=== PATIENT | female | born 1980 | race Caucasian/White ===

== ENCOUNTER 2022-07-16 08:59 | Outpatient (AMBR) | payer MEDICAID, SELFPAY ==
--- NOTE | 2022-07-14 09:56 | PT.ODAYNRPT ---
PT Outpatient Daily Note Date of Service: 07/14/22 OP Daily Note Visit Reasons: Right shoulder pain Outpatient Physical Therapy Treatment Date: 07/14/22 Subjective: Pt had her left shoulder operated and brought in an order. Pt will complete right shoulder on tuesday Objective: Please see flow chart for list of ther ex performed Assessment: tolerate exercises with minimal pain Plan: Continue with PT Length of Time (minutes) of Treatment: 30 Minutes Office Procedures PT Treatments PT Date of Service: 07/14/22 Therapeutic Exercise 30 minutes: Yes
--- NOTE | 2022-07-16 09:32 | PT.ODS1RPT ---
PT OP Progress/Discharge Note Date of Service: 07/16/22 Progress Note/DC Note Progress Note/Discharge Note: DC Note Patient Information Visit Reasons: Right shoulder pain Medical Diagnosis: Right Shoulder Pain Treatment Dx #1: Right Shoulder Mobility Deficits Service Continue Service or Discharge: Discharge Discharge Date: 07/16/22 Status Subjective: Pt's arm is about the same. Pt recently had her opposite her operated. Pt still has limitation with all ADLs, chores, overhead motions, reaching behind back, and recreational activities. Pt will like to stop physical therapy and follow up with provider for further consultation. Objective: Right Shoulder AROM Flexion: 160 deg Abduction: 160 deg External Rotation: 80 deg Internal Rotation: 60 deg Right Shoulder MMTs: grossly 3+/5 Right Scapula MMTs: grossly 3+/5 HBB: Thumb at glute fold Special Test (+) hawkin- james, (+) speed (+) active garcía's Assessment: Pt demonstrate slight improve with shoulder ROM but no change with pain leading to difficulty with ADLs. Pt will no longer benefit from physical therapy due to minimal progression towards goals. Pt advised to follow up with provider for further consultation; thank you for your referrals Plan: D/C home and follow up with MD Recommend further imaging Office Procedures PT Treatments PT Date of Service: 07/16/22 Therapeutic Exercise 30 minutes: Yes PT Treatments PT Date of Service: 07/14/22 Therapeutic Exercise 30 minutes: Yes
== END 2022-08-11 23:59 | disposition home or self-care (01) ==
PROVIDERS: Visit Provider Physician Assistant
DX: Z53.9 Procedure and treatment not carried out, unspecified reason (principal)
CPT/HCPCS: 97110

== ENCOUNTER 2024-08-05 18:54 | Emergency (ER) | payer MEDICAID, SELFPAY ==
[2024-08-05 18:55] VITALS: BMI 22.7
--- NOTE | 2024-08-05 18:58 | EKG_ITS ---
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1980 Requested By: ED Temporary Provider Order Number: [id number] Reading MD: ED Temporary Provider Measurements Intervals [place] Rate: 118 P: 71 UT: 135 QRS: -13 QRSD: 87 T: 67 QT: 357 QTc: 501 Interpretive Statements SINUS TACHYCARDIA LEFT ATRIAL ENLARGEMENT [-0.15mV P-WAVE IN V1/V2] POSSIBLE RIGHT VENTRICULAR CONDUCTION DELAY [RSR (QR) IN V1/V2] NONSPECIFIC ST & T-WAVE ABNORMALITY Compared to ECG 02/12/2021 08:10:54 Atrial abnormality now present T-wave abnormality now present Sinus rhythm no longer present Short UT interval no longer present /store/S0/[id number].pdf
[2024-08-05 19:00] VITALS: BP 142/88; PULSE 130; RESP 18; TEMP 37.2; O2SAT 95
--- NOTE | 2024-08-05 19:24 | PD.EDRME ---
Rapid Medical Screening Exam RME Arrival date/time: 08/05/24 18:54 Chief Complaint: Arrhythmia/Palpitations Time Seen by Provider: 08/05/24 19:16 Vital signs: Vital Signs Temperature 99.0 F 08/05/24 19:00 Pulse Rate 130 H 08/05/24 19:00 Respiratory Rate 18 08/05/24 19:00 Blood Pressure 142/88 H 08/05/24 19:00 Pulse Oximetry (%) 95 08/05/24 19:00 Oxygen Delivery Method Room Air 08/05/24 19:00 Vital signs reviewed by provider: Yes RME Narrative: 44-year-old female presents to the ED with a complaint of palpitations, shortness of breath, feeling of non-psychogenic anxiety. She states her blood pressure during the time of the incident approximately 45 minutes ago was 170s over 1 teens. She denies recent illness with fever, chills, cough, upper respiratory complaints. She denies use of excessive caffeine. She is a diabetic and has been taking her medications. No known thyroid issues. I have greeted and performed a focused initial assessment of this patient. A comprehensive ED assessment and evaluation of the patient, analysis of all test results, and completion of the medical decision making process will be conducted by additional ED providers.
--- NOTE | 2024-08-05 19:26 | XR_ITS ---
Examination: PA lateral chest 2 views TECHNIQUE: Upright PA and lateral chest 2 views Date and time: August 05, 2024 1929 hours COMPARISON: July 05, 2020 INDICATIONS: Onset chest pain today FINDINGS: Normal heart size. Lungs are clear. Osseous structures are intact. IMPRESSION: No active disease
--- NOTE | 2024-08-05 19:43 | PD.EDARRY ---
ED Arrhythmia Palp. RME/HPI General Chief Complaint: Arrhythmia/Palpitations Stated Complaint: PALPITATIONS, DIZZINESS & HTN Time Seen by Provider: 08/05/24 19:16 Arrival date/time: 08/05/24 18:54 RME / HPI RME / HPI narrative: 44-year-old female presents to the ED with a complaint of palpitations, shortness of breath, feeling of non-psychogenic anxiety. She states her blood pressure during the time of the incident approximately 45 minutes ago was 170s over 1 teens. She denies recent illness with fever, chills, cough, upper respiratory complaints. She denies use of excessive caffeine. She is a diabetic and has been taking her medications. No known thyroid issues. I have greeted and performed a focused initial assessment of this patient. A comprehensive ED assessment and evaluation of the patient, analysis of all test results, and completion of the medical decision making process will be conducted by additional ED providers. This section includes all my notes and documentations, including HPI, PE, and ED course. 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 No other complaints. ROS: All negative except as documented in HPI. Physical Exam: General: Alert and oriented. Appears anxious. Eyes: Conjunctivae and lids clear. ENT: No nasal congestion. Neck: Supple. Heart: Sinus tachycardia noted. Lungs: No respiratory distress. Good air movement. No rhonchi, wheezing, rales. Skin: Warm and dry. Neuro: Alert and oriented X 3. Cranial nerves II to XII grossly normal. No peripheral motor deficits. I reviewed all diagnostic test results. My interpretation of the EKG is sinus tachycardia with no acute ST?T changes. My interpretation of the chest x-ray is unremarkable. Blood tests are unremarkable, including negative troponin/D-dimer/BNP. At this point, diagnoses include anxiety. Treatment here included Xanax. Significant improvement noted. Recommended more outpatient cardiac workup. Based on my best medical judgment, made decision no further evaluation or treatment indicated at this time. Patient understands and agrees to the discharge instructions customized and printed, see below. Discharge instructions from Dr. Smiley: 1. After extensive evaluation, there is no life-threatening condition.? Such as heart attack or pulmonary embolism (blood clots in your lungs) or pneumothorax (collapsed lung). 2. Your symptoms may be due to underlying stress or anxiety or nerves.? This is fairly common. 3. Take metoprolol as needed.? Hold if heart rate < 70 or SBP (higher BP number) < 110. 4. See a private doctor on 08/06/24 for recheck and further care. To make sure there is no serious underlying heart condition, ask to help you get more tests for your heart that cannot be done here in the ER.? Such as Holter Monitor (cardiac monitoring at home from a day to even a month), heart stress test (on treadmill or with medication), echocardiogram (imaging of your heart structures), heart catherization (checking for blockages in your heart arteries), and a referral to see a Change Control Specialist. 5. Seek immediate medical care with worsening or with any concerns.?? You were given a dose of Xanax here today for severe palpitation and tachycardia. Stalin Smiley MD Related Data Home Medications ?Medication ?Instructions ?Recorded ?Confirmed insulin regular human 100 unit/mL See Rx Instructions .Route .COMPLEX 01/10/20 02/12/21 injection solution (Novolin R Regular U-100 Insulin) Previous Rx's ?Medication ?Instructions ?Recorded metoprolol tartrate 25 mg tablet 25 mg PO BID PRN Anxiety #20 tabs 08/05/24 Allergies Allergy/AdvReac Type Severity Reaction Status Date / Time No Known Allergies Allergy Verified 02/12/21 07:54 Review of Systems Review of Systems Systems Reviewed: All systems reviewed, normal except as documented Past Medical History Past Medical History CARDIAC: Negative Congestive Heart Failure RESPIRATORY: Negative Chronic Obstructive Pulmonary Disease (COPD), Asthma, Emphysema, Pneumonia or Tuberculosis GENITOURINARY: Negative Renal Disease ENDOCRINE: Positive Diabetes Mellitus Type 1; Negative Diabetes Mellitus Type 2 PSYCHO/SOCIAL: Positive Recreational Drug Use OTHER HISTORY: Negative Cancer Surgical History SURGICAL: Positive Hysterectomy Social History SMOKING STATUS: Current every day smoker SECOND HAND EXPOSURE: No SUBSTANCE USE: does not use ED Exam Narrative Physical exam: As noted in HPI. Course Course Course Narrative: CXR is ordered for determining the etiology of palpitations. Quality Measures none Orders Category Date Time Status EKG (ED ONLY) *Do not use* NOW Care 08/05/24 18:58 Completed EKG (ED Only) Stat Exams 08/05/24 18:58 Draft XR chest 2V Stat Exams 08/05/24 19:26 Taken B-Type Natriuretic Peptide Stat Lab 08/05/24 19:26 Ordered CBC Stat Lab 08/05/24 19:26 Ordered Comprehensive Metabolic Panel Stat Lab 08/05/24 19:26 Ordered Drug Screen,Urine Stat Lab 08/05/24 19:26 Ordered Free T4 (Free Thyroxine) Stat Lab 08/05/24 19:26 Ordered HCG Qualitative,Urine Stat Lab 08/05/24 19:26 Ordered LDH (Lactate Dehydrogenase) Stat Lab 08/05/24 19:26 Ordered Magnesium Stat Lab 08/05/24 19:26 Ordered Partial Thromboplastin Time Stat Lab 08/05/24 19:26 Ordered Prothrombin Time with INR Stat Lab 08/05/24 19:26 Ordered TSH [Thyroid Stimulating Hormone] Stat Lab 08/05/24 19:26 Ordered Troponin I Stat Lab 08/05/24 19:26 Ordered Urinalysis Stat Lab 08/05/24 19:26 Ordered Vital Signs Vital signs: Vital Signs Temperature 99.0 F 08/05/24 19:00 Pulse Rate 130 H 08/05/24 19:00 Respiratory Rate 18 08/05/24 19:00 Blood Pressure 142/88 H 08/05/24 19:00 Pulse Oximetry (%) 95 08/05/24 19:00 Oxygen Delivery Method Room Air 08/05/24 19:00 Arrhythmia/Palpitations MDM Narrative MDM Narrative:: Scribe Attestation: 08/05/24 Sharyn Stevenson am scribing for and in the presence of Dr. Smiley. 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 Patient states she was watching TV when she started having palpitations that would not subside, reporting she's had them for the last one hour. Patient reports feeling anxious and dizzy. She denies any fever, chills, cough or any other associated symptoms. No other complaints reported. Patient data External records reviewed:: [facility] previous records (Per chart review, patient has no relevant previous ED visits.) Clinical information provided by:: patient Social determinants that could affect healthcare access:: substance use (history of; is on methadone) Patient has the following chronic illnesses:: DM How is presenting disease/condition affected by chronic disease/condition?: uneffected by Evaluation data The following diagnostics were reviewed and interpreted by me:: lab results, radiology exam(s) and EKG tracing(s) Lab and/or radiology exams considered but not ordered:: none Interpretation Summary: I reviewed all diagnostic test results. My interpretation of the EKG is sinus tachycardia with no acute ST?T changes. My interpretation of the chest x-ray is unremarkable. Blood tests are unremarkable, including negative troponin/D-dimer/BNP. Medications / Prescriptions Medications or Prescriptions considered but not ordered:: none Medication administrations:: Xanax Consultations Consultation(s) initiated? (list below): No Diagnosis Differential diagnosis arrhythmia/palpitations: palpitations, anxiety, sinus tachycardia, artial fibrillation, artial flutter, ventricular premature beats, supraventricular tachycardia and ventricular tachycardia Most likely diagnosis given after review of the tests above:: Anxiety Admission Indicated Admission indicated?: not indicated Explain why admission is indicated or not indicated:: With significant improvement, there was no indication for admission. Admission Request Was there a request for admission?: No Disposition Plan Disposition Plan: Discharge Discharge Attestation Discharge Attestation: The patient and all family members were given an opportunity to ask questions and understood the discharge instructions. Discharge instructions specifically effects, indications for sooner follow up or return to the emergency department, and the expected course of current diagnosis. Patient condition: Stable Discharge Plan Plan Patient Disposition: HOME (Self Care) Prescriptions/Referrals Prescriptions/Med Rec: New metoprolol tartrate 25 mg tablet 25 mg PO BID PRN (Reason: Anxiety) Qty: 20 0RF No Action Novolin R Regular U100 Insulin 100 unit/mL Solution See Rx Instructions .ROUTE .COMPLEX Rx Instructions: per sliding scale. Pt on insulin pump. Referrals: Malini Fulton PA-C [Primary Care Provider] - In 1 week Problem List Clinical Impression: Palpitations Patient/Caregiver Discharge Instructions Discharge Activity: activity as tolerated Education Materials: ED Anxiety Reaction, ED Panic Attack Additional Instructions: Discharge instructions from Dr. Smiley: 1. After extensive evaluation, there is no life-threatening condition.? Such as heart attack or pulmonary embolism (blood clots in your lungs) or pneumothorax (collapsed lung). 2. Your symptoms may be due to underlying stress or anxiety or nerves.? This is fairly common. 3. Take metoprolol as needed.? Hold if heart rate < 70 or SBP (higher BP number) < 110. 4. See a private doctor on 08/06/24 for recheck and further care. To make sure there is no serious underlying heart condition, ask to help you get more tests for your heart that cannot be done here in the ER.? Such as Holter Monitor (cardiac monitoring at home from a day to even a month), heart stress test (on treadmill or with medication), echocardiogram (imaging of your heart structures), heart catherization (checking for blockages in your heart arteries), and a referral to see a Change Control Specialist. 5. Seek immediate medical care with worsening or with any concerns.?? You were given a dose of Xanax here today for severe palpitation and tachycardia. Stalin Smiley MD Print Language: Uzbek Stand Alone Forms: Karen Award Info., Patient Portal Info Letter
[2024-08-05 19:56] LABS: Basophils # (Auto) 0.1 Thou/mm3 (0.0-0.2); Basophils % (Auto) 1 % (0-2.5); Eosinophils # (Auto) 0.1 Thou/mm3 (0.0-0.5); Eosinophils % (Auto) 2 % (0-10); Hematocrit 45.2 % (36.0-46.0); Hemoglobin 15.2 g/dL (12.0-16.0); Immature Granulocytes % (Auto) 0 % (0-0); Immature Granulocytes Auto 0.01 Thou/mm3 (0.00-0.00); Lymphocytes # (Auto) 2.1 Thou/mm3 (1.0-4.8); Lymphocytes % (Auto) 30 % (10-50); Mean Corpuscular HGB Conc 33.6 g/dl (31.0-37.0); Mean Corpuscular Hemoglobin 27.7 pg (25.0-35.0); Mean Corpuscular Volume 83 fL (80-100); Monocytes # (Auto) 0.5 Thou/mm3 (0.0-0.8); Monocytes % (Auto) 7 % (0-12); Neutrophils % (Auto) 60 % (37-80); Nucleated Red Blood Cell % 0 /100 WBC (0); Platelet Count 237 Thou/mm3 (140-440); RDW Standard Deviation 37.1 fL (36.4-46.3); Red Blood Count 5.48 Miln/mm3 (4.00-5.20); White Blood Count 6.8 Thou/mm3 (3.6-11.0)
[2024-08-05 20:08] VITALS: BP 117/83; PULSE 90
[2024-08-05 20:11] LABS: Partial Thromboplastin Time 26.1 Seconds (22.0-36.0); Prothrombin Time 11.2 Seconds (9.0-12.2)
[2024-08-05] MEDS: ALPRazoLAM 0.25 MG TABLET 0.5 MG PO (20:12)
[2024-08-05 20:13] LABS: B-Type Natriuretic Peptide < 20 pg/mL (0-100)
[2024-08-05 20:19] LABS: Alanine Aminotransferase 12 U/L (10-49); Albumin, Serum 4.3 gm/dL (3.5-5.0); Albumin/Globulin Ratio 1.6 (1.2-2.2); Alkaline Phosphatase 64 U/L (46-116); Anion Gap 10 (7-16); Aspartate Amino Transferase 14 U/L (0-34); BUN/Creatinine Ratio 6 Ratio (12-20); Bilirubin,Total 0.4 mg/dL (0.3-1.2); Blood Urea Nitrogen < 5 mg/dL (9-23); Carbon Dioxide 28.1 mMol/L (20.0-31.0); Chloride 98 mMol/L (98-107); Creatinine (Component) 0.9 mg/dL (0.6-1.3); Free T4 (Free Thyroxine) 1.27 ng/dL (0.89-1.76); Globulin 2.7 gm/dL (2.3-3.5); Glucose 354 mg/dL (74-106); LDH (Lactate Dehydrogenase) 181 U/L (120-246); Magnesium 1.8 mg/dL (1.6-2.6); Osmolality,Calculated 283 (275-295); Potassium 3.8 mMol/L (3.4-5.1); Sodium 136 mMol/L (136-145); Thyroid Stimulating Hormone 3.44 uIU/mL (0.55-4.78); Troponin I < 0.002 ng/mL (0.0-0.045); eGFR > 60 See Note
[2024-08-05 20:21] LABS: D-Dimer < 250 ng/mL (<600)
[2024-08-05 20:32] LABS: Collection Type, Urine Clean Catch
[2024-08-05 20:52] LABS: Amphetamine/Methamp Scrn,U Negative (Negative); Barbiturate Screen,Urine Negative (Negative); Benzodiazepines Screen,Urine Negative (Negative); Benzoylecgonine Screen, Ur Negative (Negative); Fentanyl Screen,Urine Negative (Negative); Opiate Screen,Urine Negative (Negative); THC Screen,Urine Negative (Negative)
[2024-08-05 20:53] LABS: HCG Qualitative,Urine Negative
[2024-08-05 21:19] LABS: Bacteria,Urine Rare; Bilirubin,Urine Negative (Negative); Blood,Urine Negative (Negative); Clarity,Urine Clear (Clear/Hazy); Color,Urine Lt-Yellow (Lt Yel-Yel); Glucose, Urine 4+ (Negative); Ketones,Urine Negative (Negative); Leukocyte Esterase,Urine Positive (Negative); Nitrite,Urine Negative (Negative); PH,Urine 6.5 (5.0-7.0); Protein,Urine Negative (Neg - Trace); RBC,Urine 2 /hpf (0-3); Specific Gravity,Urine 1.027 (1.001-1.035); Squamous Epithelial Cell,Urine 3 /hpf (0-5); Urobilinogen,Urine Negative mg/dL (0.0-1.0); WBC,Urine 24 /hpf (0-5)
== END 2024-08-05 20:42 | disposition home or self-care (01) ==
PROVIDERS: Physician Assistant; Emergency Provider Emergency Medicine; PCP Physician Assistant
DX: R00.2 Palpitations (principal); R06.02 Shortness of breath; E10.9 Type 1 diabetes mellitus without complications; F41.9 Anxiety disorder, unspecified
CPT/HCPCS: 36415; 71046; 80053; 80307; 81001; 81025; 83615; 83735; 83880; 84439; 84443; 84484; 85025; 85379; 85610; 85730; 93005; 99283; A9270

== ENCOUNTER 2024-12-10 15:54 | Emergency (ER) | payer MEDICAID, SELFPAY ==
[2024-12-10 15:56] VITALS: BP 150/85; PULSE 94; RESP 18; TEMP 37.3; O2SAT 95; BMI 21.6
[2024-12-10 15:57] VITALS: PULSE 105; RESP 19; O2SAT 97; BMI 21.6
--- NOTE | 2024-12-10 15:57 | EKG_ITS ---
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
--- NOTE | 2024-12-10 15:58 | EDNOTE_ITS ---
ED General RME/HPI General Chief complaint: General Adult/Misc Complain Stated complaint: HIGH BLOOD PRESSURE Time Seen by Provider: 12/10/24 15:55 Arrival date/time: 12/10/24 15:54 CC: Sky in blood pressure palpitations HPI onset intermittent started in September, initially went twice a week and every day then stopped for several months and then restarted 4 days ago. Patient was seen here back in September was worked up given p.o. metoprolol to take at the start of 1 of these palpitations but not any other time otherwise. Currently the patient denies chest pain shortness of breath or difficulty breathing and is currently not experiencing any palpitations or unusual sensation. Related Data Home Medications ?Medication ?Instructions ?Recorded ?Confirmed insulin regular human 100 unit/mL See Rx Instructions .Route .COMPLEX 01/10/20 02/12/21 injection solution (Novolin R Regular U-100 Insulin) Previous Rx's ?Medication ?Instructions ?Recorded metoprolol tartrate 25 mg tablet 25 mg PO BID PRN Anxi ety #20 tabs 08/05/24 Allergies Allergy/AdvReac Type Severity Reaction Status Date / Time No Known Allergies Allergy Verified 02/12/21 07:54 Review of Systems Review of Systems Narrative Review of Systems: GEN: No fever, no chills, no weight loss EYES: No discharge, no visual changes, no pain HEENT: No ear pain, no congestion, no sore throat PULM: No shortness of breath, no cough, no congestion CV: No chest pain, no dyspnea on exertion, no palpitations GI: No nausea, no vomiting, no diarrhea, no pain, no constipation : No frequency, no urgency, no dysuria MUSC/SKEL: No joint pain, no back pain SKIN: No rash PSYCH: No hallucinations, no depression HEME/LYMPH: No easy bleeding or bruising tendencies NEURO: No weakness, no headache Past Medical History Past Medical History CARDIAC: Negative Congestive Heart Failure RESPIRATORY: Negative Chronic Obstructive Pulmonary Disease (COPD), Asthma, Emphysema, Pneumonia or Tuberculosis GENITOURINARY: Negative Renal Disease ENDOCRINE: Positive Diabetes Mellitus Type 1; Negative Diabetes Mellitus Type 2 PSYCHO/SOCIAL: Positive Recreational Drug Use OTHER HISTORY: Negative Cancer Surgical History SURGICAL: Positive Hysterectomy Social History SMOKING STATUS: Current every day smoker SECOND HAND EXPOSURE: No SUBSTANCE USE: does not use ED Exam Narrative Physical exam: [General: Thin but not emaciated not in any acute distress Head normocephalic HEENT: Within acceptable limits Neck is supple nontender Chest equal chest rise nontender to palpation Respiratory: Clear to auscultation no wheezes crackles or rubs CV: Rate rhythm is regular no murmurs rubs or clicks Abdomen is flat soft nontender no masses positive bowel sounds all 4 quadrants Back: No CVA tenderness no spinous process tenderness from cervical spine thoracic and lumbar spine Skin: Intact no petechiae rash induration ulceration or crepitus Extremities: Moving all extremity against resistance cap refill less than 2 seconds neurosensory intact Neuro: Awake alert oriented x3 Glascow coma 15 no focal deficits] Course Course Course Narrative: Second EKG performed the patient was complaining of left lateral chest pain with radiation and tingling into the left arm. Note EKG is unremarkable. Patient has not had no reoccurrence of these tachycardic or palpitation episodes since admission to the ER via EMS I have not observed a single 1. Review of the record show this is mostly anxiety however when this is approached with the patient she vehemently denies that anxiety is a component. Will have the patient follow-up with her primary care doctor and follow-up. Quality Measures none Orders Category Date Time Status EKG (ED ONLY) *Do not use* NOW Care 12/10/24 15:57 Completed EKG (ED ONLY) *Do not use* NOW Care 12/10/24 17:06 Completed EKG (ED Only) Stat Exams 12/10/24 15:57 Draft EKG (ED Only) Stat Exams 12/10/24 17:06 Draft B-Type Natriuretic Peptide Stat Lab 12/10/24 16:42 Completed Beta Hydroxybutyrate Stat Lab 12/10/24 16:42 Completed CBC Stat Lab 12/10/24 16:42 Completed Comprehensive Metabolic Panel Stat Lab 12/10/24 16:42 Completed Drug Screen,Urine Stat Lab 12/10/24 15:57 Ordered LDH (Lactate Dehydrogenase) Stat Lab 12/10/24 16:42 Completed Magnesium Stat Lab 12/10/24 16:42 Completed Partial Thromboplastin Time Stat Lab 12/10/24 16:42 Completed Prothrombin Time with INR Stat Lab 12/10/24 16:42 Completed Troponin I Stat Lab 12/10/24 16:42 Completed Urinalysis, C/S if Indicated Stat Lab 12/10/24 15:57 Ordered Vital Signs Vital signs: Vital Signs Temperature 99.2 F 12/10/24 15:56 Pulse Rate 94 12/10/24 15:56 Respiratory Rate 18 12/10/24 15:56 Blood Pressure 150/85 H 12/10/24 15:56 Pulse Oximetry (%) 95 12/10/24 15:56 Oxygen Delivery Method Room Air 12/10/24 15:56 Discharge Plan Plan Patient Disposition: HOME (Self Care) Patient condition on transfer: Stable Prescriptions/Referrals Prescriptions/Med Rec: No Action Novolin R Regular U100 Insulin 100 unit/mL Solution See Rx Instructions .ROUTE .COMPLEX Rx Instructions: per sliding scale. Pt on insulin pump. metoprolol tartrate 25 mg tablet 25 mg PO BID PRN (Reason: Anxiety) Qty: 20 0RF Referrals: Malini Fulton PA-C [Primary Care Provider, [facility]] - In 1 week Problem List Clinical Impression: Palpitations Patient/Caregiver Discharge Instructions Education Materials: ED Palpitations Additional Instructions: Follow-up with your primary care doctor continue use the metoprolol when you feel these episodes coming on. From the emergency room perspective there is no acute finding requires emergent or immediate intervention. Print Language: Botswanan Stand Alone Forms: [employer] Award Info., Work/School Release, Patient Portal Info Letter PA/MATHIEU Supervising Physician PA/MATHIEU Supervising Physician: Robby Murguia ENP MDM Meds/Rx considered, not ordered None Labs/Rad/Tests considered, not ordered None Chronic Illness/Social Conditions Explain: Diabetes EKG Interpretation EKG #1: EKG Interpretation: EKG performed at 1603 shows a ventricular rate of 88 NC interval 143 QRS of 99 QTc of 428 this is normal sinus rhythm. Repeat EKG at 1707 shows a ventricular rate of 80 NC interval 139 QRS of 102 QTc of 427 normal sinus rhythm. Labs Labs: interpreted by nc Lab(s) Interpretation(s): CBC shows no acute leukocytosis anemia thrombocytopenia Coags within acceptable limits CMP shows an elevated blood glucose of 189 no other electrolyte imbalances renal impairment transaminitis or T. bili elevation Troponin is detectable BNP within acceptable limits Beta hydroxy is at 0.1. Imaging Imaging interpretation: none Medication Administration(s) none Diagnosis Differential Diagnosis ED Complaint MDM: ACS FL pneumonia DKA
[2024-12-10 16:57] LABS: Beta Hydroxybutyrate 0.1 mmol/L (<0.6)
[2024-12-10 17:00] LABS: Basophils # (Auto) 0.1 Thou/mm3 (0.0-0.2); Basophils % (Auto) 1 % (0-2.5); Eosinophils # (Auto) 0.1 Thou/mm3 (0.0-0.5); Eosinophils % (Auto) 1 % (0-10); Hematocrit 39.9 % (36.0-46.0); Hemoglobin 12.9 g/dL (12.0-16.0); Immature Granulocytes Auto 0.02 Thou/mm3 (0.00-0.00); Lymphocytes # (Auto) 2.1 Thou/mm3 (1.0-4.8); Lymphocytes % (Auto) 29 % (10-50); Mean Corpuscular HGB Conc 32.3 g/dl (31.0-37.0); Mean Corpuscular Hemoglobin 26.9 pg (25.0-35.0); Mean Corpuscular Volume 83 fL (80-100); Monocytes # (Auto) 0.5 Thou/mm3 (0.0-0.8); Monocytes % (Auto) 6 % (0-12); Neutrophils # (Auto) 4.6 Thou/mm3 (1.8-7.7); Neutrophils % (Auto) 63 % (37-80); Nucleated Red Blood Cell # 0.00 Thou/mm3 (0.00-0.00); Nucleated Red Blood Cell % 0 /100 WBC (0); Platelet Count 233 Thou/mm3 (140-440); RDW Standard Deviation 39.3 fL (36.4-46.3); Red Blood Count 4.80 Miln/mm3 (4.00-5.20); White Blood Count 7.2 Thou/mm3 (3.6-11.0)
--- NOTE | 2024-12-10 17:06 | EKG_ITS ---
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
[2024-12-10 17:15] LABS: B-Type Natriuretic Peptide 27 pg/mL (0-100)
[2024-12-10 17:16] LABS: Alanine Aminotransferase 15 U/L (10-49); Albumin, Serum 4.1 gm/dL (3.5-5.0); Albumin/Globulin Ratio 2.0 (1.2-2.2); Alkaline Phosphatase 70 U/L (46-116); Anion Gap 7 (7-16); Aspartate Amino Transferase 14 U/L (0-34); BUN/Creatinine Ratio 16 Ratio (12-20); Bilirubin,Total 0.4 mg/dL (0.3-1.2); Blood Urea Nitrogen 13 mg/dL (9-23); Calcium 10.0 mg/dL (8.3-10.6); Calcium (Corrected) 10.0 mg/dL (8.5-10.1); Carbon Dioxide 30.1 mMol/L (20.0-31.0); Chloride 102 mMol/L (98-107); Creatinine (Component) 0.8 mg/dL (0.6-1.3); Estimated Creatinine Clearance 85.4 mL/min (>60); Globulin 2.1 gm/dL (2.3-3.5); Glucose 189 mg/dL (74-106); LDH (Lactate Dehydrogenase) 147 U/L (120-246); Magnesium 1.8 mg/dL (1.6-2.6); Osmolality,Calculated 282 (275-295); Potassium 3.8 mMol/L (3.4-5.1); Sodium 139 mMol/L (136-145); Total Protein 6.2 gm/dL (5.7-8.2); Troponin I < 0.002 ng/mL (0.0-0.045); eGFR > 60 See Note
[2024-12-10 17:18] LABS: INR 1.0 (0.9-1.3); Partial Thromboplastin Time 25.6 Seconds (22.0-36.0); Prothrombin Time 10.2 Seconds (9.0-12.2)
[2024-12-10 18:00] VITALS: BP 123/86; PULSE 76; RESP 18; TEMP 37.2; O2SAT 95
[2024-12-10 18:45] LABS: Collection Type, Urine Clean Catch
[2024-12-10 19:04] LABS: Amphetamine/Methamp Scrn,U Negative (Negative); Barbiturate Screen,Urine Negative (Negative); Benzodiazepines Screen,Urine Negative (Negative); Benzoylecgonine Screen, Ur Negative (Negative); Fentanyl Screen,Urine Negative (Negative); Opiate Screen,Urine Negative (Negative); THC Screen,Urine Negative (Negative)
[2024-12-10 19:11] LABS: Bilirubin,Urine Negative (Negative); Blood,Urine Negative (Negative); Clarity,Urine Clear (Clear/Hazy); Color,Urine Lt-Yellow (Lt Yel-Yel); Culture Indicated,Urine Not Indicated; Glucose, Urine 3+ (Negative); Hyaline Casts,Urine < 1 /hpf (0-1); Ketones,Urine Negative (Negative); Leukocyte Esterase,Urine Positive (Negative); Nitrite,Urine Negative (Negative); PH,Urine 6.0 (5.0-7.0); Protein,Urine Negative (Neg - Trace); RBC,Urine 2 /hpf (0-3); Specific Gravity,Urine 1.013 (1.001-1.035); Squamous Epithelial Cell,Urine 5 /hpf (0-5); Urobilinogen,Urine Negative mg/dL (0.0-1.0); WBC,Urine 1 /hpf (0-5)
[2024-12-10 20:00] VITALS: BP 135/97; PULSE 100; RESP 12; O2SAT 93
== END 2024-12-10 20:01 | disposition home or self-care (01) ==
PROVIDERS: Registered Nurse General Practice; Emergency Provider Family Medicine; PCP Physician Assistant
DX: R00.2 Palpitations (principal); R07.89 Other chest pain
CPT/HCPCS: 36415; 80053; 80307; 81001; 82010; 83615; 83735; 83880; 84484; 85025; 85610; 85730; 93005; 99283

== ENCOUNTER → 2024-12-11 | Outpatient (CLI) | payer MEDICAID, SELFPAY ==
--- NOTE | 2024-12-11 15:30 | XR_ITS ---
Examination: Carotid arterial duplex scan, ultrasound. Date and time of exam: December 11, 2024, 1521 hours INDICATIONS: Blurred vision hypertension dizziness episodes 3 months, right carotid bruit on auscultation this month Technique: Multiple sonographic images have been obtained of the carotid arteries and vertebral arteries, B-mode/grayscale imaging and Doppler spectral analysis and color flow Peak systolic and diastolic velocities have been recorded. Systolic diastolic ratios have been calculated. Findings: Right peak systolic velocities: Distal internal carotid artery peak systolic velocity is 0.8 M/sec Proximal internal carotid artery peak systolic velocity is 0.9 M/sec Carotid bifurcation peak systolic velocity is 0.8 M/sec External carotid artery peak systolic velocity is 0.9 M/sec Vertebral artery flow is antegrade. Left peak systolic velocities: Distal internal carotid artery peak systolic velocity is 1.3 M/sec Proximal internal carotid artery peak systolic velocity is 0.6 M/sec Carotid bifurcation peak systolic velocity is 0.8 M/sec External carotid artery peak systolic velocity is 1.0 M/sec Vertebral artery flow is antegrade Doppler waveform analysis demonstrates spectral broadening on the left Impression: Right internal carotid artery demonstrates 0-10% stenosis. Left internal carotid artery demonstrates 20-40% stenosis.
== END | disposition home or self-care (01) ==
PROVIDERS: PCP Physician Assistant; Referring Provider Physician Assistant; Visit Provider Physician Assistant
DX: I65.22 Occlusion and stenosis of left carotid artery (principal)
CPT/HCPCS: 93880

== ENCOUNTER 2024-12-16 19:10 | Emergency (ER) | payer MEDICAID, SELFPAY ==
--- NOTE | 2024-12-16 19:15 | EKG_ITS ---
[facility] Test Date: 2024-12-16 Pat Name: GLENROY KOTHARI Department: Room: - Gender: Female Assistant [employer]: : 1980 Requested By: Robby Ibarra Order Number: [id number] Reading MD: Robby Ibarra Measurements Intervals [place] Rate: 76 P: 16 GA: 150 QRS: -16 QRSD: 94 T: 8 QT: 391 QTc: 440 Interpretive Statements SINUS RHYTHM MINIMAL VOLTAGE CRITERIA FOR LVH, CONSIDER NORMAL VARIANT [MEETS CRITERIA IN ONE OF: R(aVL), S(V1), R(V5), R(V5/V6)+S(V1)] Compared to ECG 12/10/2024 17:07:01 No significant changes /store/S0/[id number]/[id number].pdf
--- NOTE | 2024-12-16 19:16 | EDNOTE_ITS ---
ED General RME/HPI General Chief complaint: Chest Pain Stated complaint: CHEST PAIN Time Seen by Provider: 12/16/24 19:15 Arrival date/time: 12/16/24 19:10 CC: Chest pain chest tightness HPI onset approximately 1 hour ago. Patient states she took her metoprolol and lisinopril and when her pressure did not come down shortly thereafter she became anxious, noticed that her blood pressure gone 200. EMS report the patient was tachycardic in the 120s with a blood pressure of 200/100. EMS reports focusing the patient on breathing techniques, and the heart rate has since decreased to 95 blood pressure at 160/80. Patient is mildly anxious stating that her chest pain is no longer present. Related Data Home Medications ?Medication ?Instructions ?Recorded ?Confirmed insulin regular human 100 unit/mL See Rx Instructions .Route .COMPLEX 01/10/20 02/12/21 injection solution (Novolin R Regular U-100 Insulin) Previous Rx's ?Medication ?Instructions ?Recorded metoprolol tartrate 25 mg tablet 25 mg PO BID PRN Anxi ety #20 tabs 08/05/24 Allergies Allergy/AdvReac Type Severity Reaction Status Date / Time No Known Allergies Allergy Verified 12/16/24 19:50 Review of Systems Review of Systems Narrative Review of Systems: GEN: No fever, no chills, no weight loss EYES: No discharge, no visual changes, no pain HEENT: No ear pain, no congestion, no sore throat PULM: No shortness of breath, no cough, no congestion CV: +chest pain, no dyspnea on exertion, no palpitations GI: No nausea, no vomiting, no diarrhea, no pain, no constipation : No frequency, no urgency, no dysuria MUSC/SKEL: No joint pain, no back pain SKIN: No rash PSYCH: No hallucinations, no depression HEME/LYMPH: No easy bleeding or bruising tendencies NEURO: No weakness, no headache Past Medical History Past Medical History CARDIAC: Positive Hypertension; Negative Congestive Heart Failure RESPIRATORY: Negative Chronic Obstructive Pulmonary Disease (COPD), Asthma, Emphysema, Pneumonia or Tuberculosis GENITOURINARY: Negative Renal Disease ENDOCRINE: Positive Diabetes Mellitus Type 1; Negative Diabetes Mellitus Type 2 PSYCHO/SOCIAL: Positive Recreational Drug Use OTHER HISTORY: Negative Cancer Surgical History SURGICAL: Positive Hysterectomy Social History SMOKING STATUS: Current every day smoker SECOND HAND EXPOSURE: No SUBSTANCE USE: does not use ED Exam Narrative Physical exam: [General: Anxious but not in any acute distress Head normocephalic HEENT: Within acceptable limits Neck is supple nontender Chest equal chest rise nontender to palpation Respiratory: Clear to auscultation no wheezes crackles or rubs CV: Rate rhythm is regular no murmurs rubs or clicks Abdomen is soft nontender no masses positive bowel sounds all 4 quadrants Back: No CVA tenderness no spinous process tenderness from cervical spine thoracic and lumbar spine Skin: Intact no petechiae rash induration ulceration or crepitus Extremities: Moving all extremity against resistance cap refill less than 2 seconds neurosensory intact Neuro: Awake alert oriented x3 Glascow coma 15 no focal deficits] Course Course Course Narrative: Other than elevated blood glucose level note: The patient refused insulin, patie nt will be discharged home with chest pain most likely is anxiety driven. Quality Measures none Orders Category Date Time Status EKG (ED ONLY) *Do not use* NOW Care 12/16/24 19:16 Completed EKG (ED Only) Stat Exams 12/16/24 19:15 Draft CBC Stat Lab 12/16/24 19:40 Completed CMP [Comprehensive Metabolic Panel] Stat Lab 12/16/24 19:40 Completed Drug Screen,Urine Stat Lab 12/16/24 21:11 Completed HCG Qualitative,Urine Stat Lab 12/16/24 21:11 Received Troponin I Stat Lab 12/16/24 19:40 Completed Urinalysis Stat Lab 12/16/24 21:11 Received Insulin Regular Med 12/16/24 20:35 Discontinued 5 unit SC X1 ONE Vital Signs Vital signs: Vital Signs Temperature 99.4 F 12/16/24 19:51 Pulse Rate 80 12/16/24 19:51 Respiratory Rate 12 12/16/24 19:51 Blood Pressure 155/101 H 12/16/24 19:51 Pulse Oximetry (%) 95 12/16/24 19:51 Oxygen Delivery Method Room Air 12/16/24 19:51 Discharge Plan Plan Patient Disposition: HOME (Self Care) Patient condition on transfer: Stable Prescriptions/Referrals Prescriptions/Med Rec: No Action Novolin R Regular U100 Insulin 100 unit/mL Solution See Rx Instructions .ROUTE .COMPLEX Rx Instructions: per sliding scale. Pt on insulin pump. metoprolol tartrate 25 mg tablet 25 mg PO BID PRN (Reason: Anxiety) Qty: 20 0RF Referrals: Malini Fulton PA-C [Primary Care Provider, Family Practice] - In 1 week Problem List Clinical Impression: Chest pain, Anxiety, Hyperglycemia Patient/Caregiver Discharge Instructions Education Materials: High Blood Sugar (Hyperglycemia), ED Anxiety Reaction, ED Chest Pain, Noncardiac Print Language: Albanian Stand Alone Forms: Karen Award Info., Work/School Release, Patient Portal Info Letter RADU/MATHIEU Supervising Physician RADU/MATHIEU Supervising Physician: Robby Murguia ENP MDM Clinical Information Provided by: patient and EMS Medical Records reviewed [facility] and EMS Meds/Rx considered, not ordered None Labs/Rad/Tests considered, not ordered None Chronic Illness/Social Conditions Explain: Diabetes palpitations EKG Interpretation EKG #1: EKG Interpretation: EKG performed at 1956 shows a ventricular rate of 76 WA interval 150 QRS of 98 QTc of 421 this is sinus rhythm. Labs Lab(s) Interpretation(s): CBC shows no acute leukocytosis anemia thrombocytopenia CMP shows no significant electrolyte imbalances other than a blood glucose of 271 no transaminitis or T. bili elevation Troponin is undetectable UDS is negative Imaging Imaging interpretation: none Medication Administration(s) none Medication Administration History Discontinued Medications Insulin Human Regular (Insulin Hum Regular 1 Unit/0.01 Ml (Per Unit)) 5 unit SC X1 ONE Stop: 12/16/24 20:36 Last Admin: 12/16/24 21:09 Dose: Not Given Documented By: NITZA Non-Admin Reason: Patient Refused Diagnosis Differential Diagnosis ED Complaint MDM: ACS LA pneumonia
[2024-12-16 19:44] VITALS: PULSE 95; O2SAT 99; BMI 21.9
[2024-12-16 19:51] VITALS: BP 155/101; PULSE 80; RESP 12; TEMP 37.4; O2SAT 95
[2024-12-16 19:57] LABS: Basophils # (Auto) 0.1 Thou/mm3 (0.0-0.2); Basophils % (Auto) 1 % (0-2.5); Eosinophils # (Auto) 0.1 Thou/mm3 (0.0-0.5); Eosinophils % (Auto) 1 % (0-10); Hematocrit 37.4 % (36.0-46.0); Hemoglobin 12.4 g/dL (12.0-16.0); Immature Granulocytes Auto 0.02 Thou/mm3 (0.00-0.00); Lymphocytes # (Auto) 2.1 Thou/mm3 (1.0-4.8); Lymphocytes % (Auto) 26 % (10-50); Mean Corpuscular HGB Conc 33.2 g/dl (31.0-37.0); Mean Corpuscular Hemoglobin 27.1 pg (25.0-35.0); Mean Corpuscular Volume 82 fL (80-100); Monocytes # (Auto) 0.5 Thou/mm3 (0.0-0.8); Monocytes % (Auto) 7 % (0-12); Neutrophils # (Auto) 5.2 Thou/mm3 (1.8-7.7); Neutrophils % (Auto) 66 % (37-80); Nucleated Red Blood Cell # 0.00 Thou/mm3 (0.00-0.00); Nucleated Red Blood Cell % 0 /100 WBC (0); Platelet Count 319 Thou/mm3 (140-440); RDW Standard Deviation 39.7 fL (36.4-46.3); Red Blood Count 4.57 Miln/mm3 (4.00-5.20); White Blood Count 7.9 Thou/mm3 (3.6-11.0)
[2024-12-16 20:28] LABS: Alanine Aminotransferase 15 U/L (10-49); Albumin, Serum 4.4 gm/dL (3.5-5.0); Albumin/Globulin Ratio 1.8 (1.2-2.2); Alkaline Phosphatase 68 U/L (46-116); Anion Gap 8 (7-16); Aspartate Amino Transferase 14 U/L (0-34); BUN/Creatinine Ratio 19 Ratio (12-20); Bilirubin,Total 0.3 mg/dL (0.3-1.2); Blood Urea Nitrogen 15 mg/dL (9-23); Calcium 10.0 mg/dL (8.3-10.6); Calcium (Corrected) 10.0 mg/dL (8.5-10.1); Carbon Dioxide 29.9 mMol/L (20.0-31.0); Chloride 98 mMol/L (98-107); Creatinine (Component) 0.8 mg/dL (0.6-1.3); Estimated Creatinine Clearance 85.4 mL/min (>60); Globulin 2.4 gm/dL (2.3-3.5); Glucose 271 mg/dL (74-106); Osmolality,Calculated 282 (275-295); Potassium 4.1 mMol/L (3.4-5.1); Sodium 136 mMol/L (136-145); Total Protein 6.8 gm/dL (5.7-8.2); Troponin I < 0.002 ng/mL (0.0-0.045); eGFR > 60 See Note
[2024-12-16 21:30] LABS: Collection Type, Urine Clean Catch; WBC,Urine 0 /hpf (0-5)
[2024-12-16 21:47] LABS: Amphetamine/Methamp Scrn,U Negative (Negative); Barbiturate Screen,Urine Negative (Negative); Benzodiazepines Screen,Urine Negative (Negative); Benzoylecgonine Screen, Ur Negative (Negative); Fentanyl Screen,Urine Negative (Negative); Opiate Screen,Urine Negative (Negative); THC Screen,Urine Negative (Negative)
[2024-12-16 21:52] LABS: HCG Qualitative,Urine Negative
[2024-12-16 22:07] LABS: Amorphous Crystals,Urine Present (Absent); Bilirubin,Urine Negative (Negative); Blood,Urine Negative (Negative); Clarity,Urine Turbid (Clear/Hazy); Color,Urine Lt-Yellow (Lt Yel-Yel); Glucose, Urine 4+ (Negative); Ketones,Urine Negative (Negative); Leukocyte Esterase,Urine Negative (Negative); Nitrite,Urine Negative (Negative); PH,Urine 7.5 (5.0-7.0); Protein,Urine Negative (Neg - Trace); RBC,Urine < 1 /hpf (0-3); Specific Gravity,Urine 1.016 (1.001-1.035); Squamous Epithelial Cell,Urine 2 /hpf (0-5); Urobilinogen,Urine Negative mg/dL (0.0-1.0)
[2024-12-16 22:21] VITALS: BP 114/72; PULSE 84; RESP 13; O2SAT 98
== END 2024-12-16 22:21 | disposition home or self-care (01) ==
PROVIDERS: Registered Nurse General Practice; Emergency Provider Emergency Medicine; PCP Physician Assistant
DX: R07.89 Other chest pain (principal); E11.65 Type 2 diabetes mellitus with hyperglycemia; F41.9 Anxiety disorder, unspecified
CPT/HCPCS: 36415; 80053; 80307; 81001; 81025; 84484; 85025; 93005; 99283

== ENCOUNTER → 2025-01-24 | Outpatient (CLI) | payer MEDICAID, SELFPAY ==
--- NOTE | 2025-01-24 14:15 | XR_ITS ---
Examination: Screening digital mammography, bilateral Computer aided detection 3-D breast Tomosynthesis, bilateral Date and time of exam: January 24, 2025, 1415 hours, compared to mammograms dating to October 12, 2018 Indication: Screening Technique: Nonmagnified MLO, CC views of the breasts to been obtained, reconstructed from 3-D Tomosynthesis images. R2 computer aided detection program utilized for evaluation of suspicious masses and/or abnormal calcifications. 3-D Tomosynthesis images obtained. Findings: The breasts are heterogeneously dense, which may obscure small masses 14 mm circumscribed nodule upper outer right breast Benign calcifications Impression: BI-RADS Category 0: Incomplete: Need additional imaging evaluation Recommend follow-up spot tomographic views of 14 mm circumscribed nodule upper outer right breast as well as right breast sonography to complete the recommended
== END | disposition home or self-care (01) ==
LOC: CDIM 13:43
PROVIDERS: Referring Provider Physician Assistant; Visit Provider Physician Assistant
DX: Z12.31 Encounter for screening mammogram for malignant neoplasm of breast (principal); R92.8 Other abnormal and inconclusive findings on diagnostic imaging of breast; N63.11 Unspecified lump in the right breast, upper outer quadrant
CPT/HCPCS: 77063; 77067

== ENCOUNTER → 2025-02-14 | Outpatient (CLI) | payer MEDICAID, SELFPAY ==
--- NOTE | 2025-02-14 09:57 | XR_ITS ---
Examination: Retroperitoneal ultrasound, complete Technique: Multiple high resolution grayscale images of the retroperitoneum obtained, including kidneys and bladder. Exam date and time: February 14, 2025, 1004 hours INDICATIONS: Hypertension episodes beginning 6 months ago FINDINGS: Right kidney 11.7 cm renal cortex 2.0 cm Left kidney 11.6 cm renal cortex 1.9 cm Moderate renal scar formation No hydronephrosis No bladder mass or bladder calculi Bladder prevoid volume 558 cc IMPRESSION: Moderate renal scar formation, no hydronephrosis
== END | disposition home or self-care (01) ==
LOC: CDIM 09:43
PROVIDERS: PCP Physician Assistant; Referring Provider Physician Assistant; Visit Provider Physician Assistant
DX: N28.89 Other specified disorders of kidney and ureter (principal)
CPT/HCPCS: 76770